=== PATIENT | male | born 1985 ===

== ENCOUNTER → 2019-10-16 08:14 | Outpatient (CLI) | payer OTHER, SELFPAY ==
--- NOTE | ~2019-10-16 | US_ITS ---
US right upper quadrant DATE: 10/16/2019 08:35 INDICATION: Abnormal liver enzymes. Family history of liver cancer. TECHNIQUE: Real-time imaging of the liver, pancreas, gallbladder areas COMPARISON: None FINDINGS: Hepatic steatosis. No hepatic or pancreatic space-occupying mass lesion is evident. Normal hepatopedal portal venous flow direction. No gallstones or gallbladder wall thickening are evident. A 2 mm immobile nons had owing filling defe ct of the gallbladder is noted, consistent with gallbladder polyp. The common bile duct measures 5.6 mm diameter, within normal range. IMPRESSION: 2 mm gallbladder polyp Hepatic steatosis Reviewed, dictated and finalized at [facility]. Reviewed, dictated and finalized at [facility].
== END ==
PROVIDERS: PCP Family Medicine; Visit Provider Family Medicine
DX: R74.8 Abnormal levels of other serum enzymes (principal); Z80.0 Family history of malignant neoplasm of digestive organs; K82.4 Cholesterolosis of gallbladder
CPT/HCPCS: 76705

== ENCOUNTER → 2021-07-07 09:35 | Outpatient (REF) | payer OTHER, SELFPAY | LOC: ANHLAB 09:35 | PROVIDERS: PCP Family Medicine; Visit Provider Nurse Practitioner | DX: D22.5 Melanocytic nevi of trunk (principal) | CPT/HCPCS: 88305 ==

== ENCOUNTER 2024-10-12 13:53 | Emergency (ER) | payer OTHER, SELFPAY ==
[2024-10-12] VITALS (18 sets, daily range): BP systolic 118–185; BP diastolic 101–113; PULSE 99–107; RESP 13–26; O2SAT 94–100
--- NOTE | ~2024-10-12 | XR_ITS ---
EXAMINATION: XR chest 1V portable, 10/12/2024 14:42 CDT HISTORY: heart racing, chest tightness, sob COMPARISON: No comparisons available. Technique: Single view. Findings: The lungs are clear, no effusion. No pneumothorax. Heart is normal size. Mediastinal and hilar contours are within normal limits. Bony thorax no acute abnormality. Impression: No acute cardiopulmonary abnormality. Reviewed, dictated and finalized at [facility]. Impression: No acute cardiopulmonary abnormality.
--- NOTE | 2024-10-12 13:55 | ECG_ITS ---
Test Date: 2024-10-12 14:00:58 Measurements Intervals [place] Rate: 102 P: 36 SC: 170 QRS: 25 QRSD: 96 T: 13 QT: 319 QTc: 416 Interpretive Statements SINUS TACHYCARDIA NONSPECIFIC ST- T WAVE CHANGES ABNORMAL RHYTHM ECG No previous ECG available for comparison Electronically Signed On 10-12-2024 16:10:24 CDT by Sidney Ge M.D.
[2024-10-12 14:14] LABS: Hematocrit 51.0 % (42.0-52.0); Hemoglobin 17.3 g/dL (14.0-18.0); Immature Granulocyte Percent A 0.7 % (0-0.5); Lymphocytes Absolute Auto 2.32 K/mm3 (0.9-3.2); Mean Corpuscular HGB Conc 33.9 g/dl (32-36); Mean Corpuscular Hemoglobin 29.7 pg (26-34); Mean Corpuscular Volume 87.6 fl (80-100); Nucleated Red Blood Cells Absolute Auto 0.000 K/mm3 (0.0-0.012); Nucleated Red Blood Cells Perc 0.0 % (0.0-0.2); Platelet Count Result 255 k/mm3 (150-375); Red Blood Count 5.82 M/mm3 (4.6-6.20); White Blood Count 8.2 K/mm3 (4.5-10.0)
[2024-10-12] MEDS: ASPIRIN 81 MG CHEWABLE TABLET 324 MG PO (14:16)
[2024-10-12 14:25] LABS: INR 0.9; Prothrombin Time 12.3 Seconds (11.1-14.7)
[2024-10-12 14:26] LABS: Partial Thromboplastin Time 23.3 Seconds (22.3-36.8)
[2024-10-12 14:29] LABS: Alanine Aminotransferase 109 U/L (6-50); Albumin Level 4.6 g/dL (3.5-5.1); Alkaline Phosphatase 91 U/L (38-126); Anion Gap 12 mmol/L (4-12); Aspartate Amino Transferase 74 U/L (17-59); Bilirubin,Total 0.6 mg/dL (0.2-1.3); Blood Urea Nitrogen 10 mg/dL (9-20); Calcium 9.2 mg/dL (8.4-10.2); Carbon Dioxide 22 mmol/L (22-30); Chloride 103 mmol/L (98-107); Estimated CRCL calculation 109 ml/min; Estimated Glomerular Filt Rate > 60; Glucose 115 mg/dL (65-110); Lipase 159 U/L (23-300); Potassium 4.0 mmol/L (3.4-5.0); Sodium 137 mmol/L (137-145); Total Protein 8.4 g/dL (6.3-8.2)
[2024-10-12] MEDS: LACTATED RINGERS 1,000 ML 999 ML IV CONT (14:30)
[2024-10-12 14:37] LABS: Troponin I < 0.012 ng/mL (0.000-0.034)
--- NOTE | 2024-10-12 15:29 | ED_ITS ---
HPI - General Adult General Chief complaint: Chest Pain Stated complaint: heart racing Time Seen by Provider: 10/12/24 14:11 History of Present Illness HPI narrative: 39-year-old male presents to the emergency department for evaluation for right- sided chest pain that occurred with exertion while he was mowing his yd. Patient does states he drink a lot of alcohol last night and was mowing when he had onset of chest pain. Patient also did feel his heart was racing and did have some associated shortness of breath. Patient states he does drink heavily proximally every other day. Patient denies any associated nausea or vomiting last night. Patient states he does think it times he needs to decrease the amount he drinks. Patient also does admit to frequent cocaine use. Related Data Allergies Allergy/AdvReac Type Severity Reaction Status Date / Time No Known Allergies Allergy Verified 10/12/24 13:59 Review of Systems 2 Review of Systems: All systems reviewed & are unremarkable except as noted in HPI and below PMFSH Past Medical History Medical History Ankle fracture (~2016) Surgical History Surgical History History of ankle surgery (03/18/19) Family History Family History Father Diabetes mellitus Social History Social History Smoking status: Never smoker Alcohol intake: current Exam 2 Narrative: APPEARANCE: Well appearing, no pain, no distress, well-nourished. HEAD: normocephalic, atraumatic. EYES: PERRLA/EOMI, conjunctivae clear. NOSE: Normal no drainage EARS:TMS clear with good light reflex. THROAT: Pharynx clear, no exudate. NECK: Supple. No adenopathy, no masses. RESPIRATORY: Airway patent, respirations nonlabored. Clear to auscultation bilaterally, no rales, rhonchi, wheezing. CARDIOVASCULAR: Regular rate and rhythm without murmurs rubs or gallops. ABDOMINAL: Soft, nontender, nondistended, normal bowel sounds MUSCULOSKELETAL: Moves all extremities. Strength/ROM intact, No edema, No calf tenderness. NEURO: Alert. Cranial nerves II through XII intact. Good gait. Good coordination SKIN: Warm, dry. Normal Color Course Vital Signs Vital signs: Vital Signs Pulse Rate 103 H 10/12/24 13:56 Respiratory Rate 19 10/12/24 13:56 Blood Pressure 118/113 H 10/12/24 13:56 Pulse Oximetry 100 10/12/24 13:56 Oxygen Delivery Room Air 10/12/24 13:56 Pulse Rate 102 H 10/12/24 17:00 Respiratory Rate 18 10/12/24 17:00 Blood Pressure 185/113 H 10/12/24 14:46 Pulse Oximetry 100 10/12/24 16:45 Oxygen Delivery Room Air 10/12/24 14:10 Medical Decision Making MDM Narrative Medical decision making narrative: 39-year-old male presents emergency department for evaluation for exertion all chest pain. It is currently afebrile with no leukocytosis hemoglobin of 17.3. Patient's D-dimer was less than 0.48. INR is 0.99. Patient had negative serial troponins. Lipase was negative. Chest x-ray shows no acute cardiopulmonary abnormality. EKG showed no evidence of acute myocardial infarction. Patient was updated the results of his workup and patient was encouraged to refrain from alcohol consumption and cocaine use. Patient was also encouraged close follow- up with his primary care physician for additional outpatient cardiac testing. Patient was offered admission for further cardiac testing but patient declined and prefers to have outpatient cardiac evaluation. Patient was educated on reasons to return to the emergency department. All questions concerns were addressed. Differential Diagnosis Differential Diagnosis: ACS, pulmonary embolism, pneumonia, dehydration Vital Signs Vital Signs: Vital Signs Pulse Rate 103 H 10/12/24 13:56 Respiratory Rate 19 10/12/24 13:56 Blood Pressure 118/113 H 10/12/24 13:56 Pulse Oximetry 100 10/12/24 13:56 Oxygen Delivery Room Air 10/12/24 13:56 Pulse Rate 102 H 10/12/24 17:00 Respiratory Rate 18 10/12/24 17:00 Blood Pressure 185/113 H 10/12/24 14:46 Pulse Oximetry 100 10/12/24 16:45 Oxygen Delivery Room Air 10/12/24 14:10 Lab Data Lab results reviewed: Yes I reviewed the patient's lab results. 10/12/24 14:08 10/12/24 14:08 Labs: Lab Results 10/12/24 10/12/24 10/12/24 Range/Units 14:07 14:08 16:45 WBC 8.2 (4.5-10.0) K/mm3 RBC 5.82 (4.6-6.20) M/mm3 Hgb 17.3 (14.0-18.0) g/dL Hct 51.0 (42.0-52.0) % MCV 87.6 (80-100) fl MCH 29.7 (26-34) pg MCHC 33.9 (32-36) g/dl RDW 12.7 (11.5-14.5) % Plt Count 255 (150-375) k/mm3 MPV 9.4 (7.4-10.4) fl Immature Gran % (Auto) 0.7 H (0-0.5) % Neut % (Auto) 58.9 (45.5-73.1) % Lymph % (Auto) 28.3 (18.3-44.2) % [place] % (Auto) 9.1 H (2.6-8.5) % Eos % (Auto) 1.9 (0-4.4) % Baso % (Auto) 1.1 (0.2-1.2) % Lymph # (Auto) 2.32 (0.9-3.2) K/mm3 [place] # (Auto) 0.8 H (0.1-0.6) K/mm3 Eos # (Auto) 0.2 (0-0.3) K/mm3 Baso # (Auto) 0.1 (0.0-0.1) K/mm3 Abs Immat Gran (auto) 0.06 H (0.00-0.031) K/mm3 Absolute Neuts (auto) 4.8 (1.3-6.7) K/mm3 Absolute Nucleated RBC 0.000 (0.0-0.012) K/mm3 Nucleated RBC % 0.0 (0.0-0.2) % PT 12.3 (11.1-14.7) Seconds INR 0.9 APTT 23.3 (22.3-36.8) Seconds D-Dimer 0.46 (<0.48) ug/mL Sodium 137 (137-145) mmol/L Potassium 4.0 (3.4-5.0) mmol/L Chloride 103 (98-107) mmol/L Carbon Dioxide 22 (22-30) mmol/L Anion Gap 12 (4-12) mmol/L BUN 10 (9-20) mg/dL Creatinine 1.00 (0.7-1.3) mg/dL Estim Creat Clear Calc 109 ml/min Estimated GFR > 60 (59 - ) Glucose 115 H (65-110) mg/dL Calcium 9.2 (8.4-10.2) mg/dL Total Bilirubin 0.6 (0.2-1.3) mg/dL AST 74 H (17-59) U/L ALT 109 H (6-50) U/L Alkaline Phosphatase 91 (38-126) U/L Troponin I < 0.012 < 0.012 (0.000-0.034) ng/mL Total Protein 8.4 H (6.3-8.2) g/dL Albumin 4.6 (3.5-5.1) g/dL Lipase 159 (23-300) U/L Imaging Data Radiologist's impression: Impressions Chest X-Ray 10/12/24 14:53 Impression: No acute cardiopulmonary abnormality. ECG Data EKG #1: EKG Interpretation: normal rate, tachycardia, no ectopy, non-specific ST changes, normal QRS, normal QT and NL axis Discharge Plan Discharge Clinical Impression: Chest pain, Cocaine use, Alcohol use Patient Disposition: Home Condition: Stable Instructions: Antibiotic Form, Chest Pain (ED) Additional Instructions: You were offered admission for further cardiac evaluation but you preferred to have outpatient follow-up. Call your primary care physician to schedule outpatient cardiac testing such as a stress test. If you have any worsening symptoms then please call or return to the emergency department. Refrain from substance abuse and refrain from alcohol use. Follow a well-balanced diet. Patient Language: Italian Prescriptions: No Action simvastatin 5 mg tablet 5 mg PO DAILY Qty: 30 5RF Follow-up/Referrals: PHYSICIAN,EVENT SALES ASSISTANT [Primary Care Provider, Internal Medicine] Quality HEART score for chest pain patients History: slightly suspicious ECG: normal Age: < or = to 45 years Risk factors: 1 or 2 risk factors Troponin: < or = to 1x normal limit Heart score: 1
[2024-10-12] MEDS: BELLADONNA ALK/PHENOB ELIX 10 ML, MAG HYDROX/ALUMINUM HYD/SIMETH 30 ML, LIDOCAINE 2% VI... PO (16:02)
[2024-10-12] MEDS: PANTOPRAZOLE SODIUM IV 40 MG VIAL IV PUSH (16:03)
[2024-10-12 17:14] LABS: Troponin I < 0.012 ng/mL (0.000-0.034)
== END 2024-10-12 18:21 | disposition home or self-care (01) ==
PROVIDERS: Emergency Provider Emergency Medicine
DX: R07.9 Chest pain, unspecified (principal); F14.90 Cocaine use, unspecified, uncomplicated; F10.90 Alcohol use, unspecified, uncomplicated
CPT/HCPCS: 36415; 71045; 80053; 83690; 84484; 85025; 85380; 85610; 85730; 93005; 96361; 96374; 99284; A9270; J2470; J7120